=== PATIENT | female | born 1970 | race Caucasian/White ===

== ENCOUNTER 2020-07-05 19:03 | Emergency (ER) | payer BC ==
[~2020-07-05 19:03] MED LIST: CYCLOBENZAPRINE10 MG PO; DESYREL 50 MG T50 MG PO; IMODIUM CAP 2 MG2 MG PO; K-TAB ER20 MEQ PO; LEXAPRO10 MG PO; OXYCODON-ACETA1 EAC1 PO; PROTONIX40 MG PO; VALIUM 5 MG TAB5 MG PO; ZOFRAN 4 MG TAB4 MG PO
[2020-07-05 20:35] LABS: HEMOGLOBIN 12.7 gm/dl (12.3-15.3); RED BLOOD COUNT 3.51 M/UL (4.00-5.10)
[2020-07-05 20:53] LABS: BUN/CREATININE RATIO 12 (0-10)
[2020-07-05] MEDS ORDERED: VISTARIL25 MG PO (21:17)
== END 2020-07-05 21:28 | disposition home or self-care (01) ==
LOC: ER1 19:03
PROVIDERS: Preventive Medicine Occupational Medicine
DX: L50.9 Urticaria, unspecified (principal); Z85.038 Personal history of other malignant neoplasm of large intestine
CPT/HCPCS: 80048; 85025; 96374; 99283; J1200; J7030